=== PATIENT | female | born 1985 | race Caucasian/White ===

== ENCOUNTER 2016-05-01 20:23 | Inpatient (IN) | payer MEDICAID ==
[~2016-05-01] VITALS: Ht 157.5 cm; Wt 92.4 kg
[2016-05-01] MEDS ORDERED: IOHEXOL 350 MG/ML 100ML IJ ONE (20:39)
[2016-05-01 21:03] LABS: Basophils # (auto) 0 uL; Basophils % (auto) 0.3 % (0.0-2.0); DEFINITIVE VIEW TRANSMISSION; Eosinophils # (auto) 0.1 uL; Eosinophils % (auto) 0.4 % (0.0-7.0); Hematocrit 33.1 % (36.0-46.0); Hemoglobin 10.4 g/dL (12.2-16.2); Lymphocytes # (auto) 1.8 uL; Lymphocytes % (auto) 13.8 % (10.0-50.0); Mean Corpuscular Hemoglobin 24.8 pg (28.0-32.0); Mean Corpuscular Hgb Conc. 31.3 g/dL (32.0-36.0); Mean Corpuscular Volume 79.3 fL (80.0-100.0); Mean Platelet Volume 8.8 fL (7.4-10.4); Monocytes # (auto) 0.7 uL; Monocytes % (auto) 5.4 % (0.0-12.0); Neutrophils # (auto) 10.7 uL; Neutrophils % (auto) 80.1 % (37.0-80.0); Platelet Count (auto) 337 10^3/uL (140-450); Red Cell Distribution Width 18.4 % (11.6-16.0); White Blood Cell 13.4 10^3/uL (4.4-10.8)
[2016-05-01 21:25] LABS: Albumin 3.4 g/dL (3.4-5.0); BUN/Creatinine Ratio 17.6; Bilirubin, Total 0.4 mg/dL (0.2-1.0); Calcium 8.7 mg/dL (8.5-10.1); Total Protein 8.2 g/dL (6.4-8.2)
[2016-05-01 21:30] LABS: B-Type Natriuretic Peptide 127.7 pg/mL (0-100); Temperature: 22.7 C (20.0-25.0)
[2016-05-01 21:35] LABS: INR 1.11 (0.9-1.15); Prothrombin Time 11.4 sec (9.37-12.3)
[2016-05-01] MEDS ORDERED: ALTEPLASE (RECOMBINANT) 100 MG in STERILE WATER 100 ML IV ONE ×4 (22:45)
[2016-05-01] MEDS ORDERED: ALTEPLASE (RECOMBINANT) 100 MG ONE (22:52)
[2016-05-02] MEDS ORDERED: HEPARIN DRIP/D5W 100UNITS/ML 250 ML IV SCH ×5 (00:31→21:00)
[2016-05-02 02:55] LABS: Urine RBC None Seen /hpf (0 - 4)
[2016-05-02 03:24] LABS: Urine Bilirubin Negative (Negative); Urine Blood 1+ /uL (Negative); Urine Color Yellow (Yellow); Urine Glucose TRACE mg/dL (Normal); Urine Ketone 1+ (Negative); Urine Mucus FEW (None Seen); Urine Nitrite POSITIVE (Negative); Urine Squamous Epithelial Cell FEW /hpf (<5); Urine Urobilinogen Normal (Negative)
[2016-05-02] MEDS ORDERED: MORPHINE SULF INJ 2 MG/ML SYRINGE 1ML IV PRN (03:30)
[2016-05-02] MEDS ORDERED: ALBUTEROL SULF 2.5 MG/0.5ML(0.5%) NEB SOLN NEB PRN (03:30)
[2016-05-02] MEDS ORDERED: ACETAMINOPHEN 325 MG TAB PO PRN (03:30)
[2016-05-02] MEDS ORDERED: ONDANSETRON HCL 4 MG/2 ML VIAL IV PRN (03:30)
[2016-05-02] MEDS ORDERED: NITROGLYCERIN 0.4 MG SL TAB SL PRN (03:30)
[2016-05-02] MEDS ORDERED: HYDROcodone-ACET 5/325MG TAB PO PRN (03:30)
[2016-05-02] MEDS: SODIUM CHLORIDE 0.9% 1,000 ML IV SCH (04:12)
[2016-05-02 09:47] LABS: INR 1.43 (0.9-1.15); Prothrombin Time 14.7 sec (9.37-12.3)
[2016-05-02] MEDS: FAMOTIDINE 20 MG TAB PO SCH ×2 (10:10→21:43)
[2016-05-02 10:45] VITALS: BP 121/80
[2016-05-02] MEDS ORDERED: DEXTROSE (50%) 50ML SYRG IV PRN (12:45)
[2016-05-02] MEDS: HEPARIN DRIP/D5W 100UNITS/ML 250 ML IV SCH ×2 (14:53→17:36)
[2016-05-02] MEDS ORDERED: cefTRIAXone 1GM/50ML D5W 50 ML IV ONE (16:15)
[2016-05-02 16:33] LABS: Temperature: 23.3 C (20.0-25.0)
[2016-05-02 17:11] LABS: Partial Thromboplastin Time 35.4 sec (22.64-33.71)
[2016-05-02 17:13] LABS: INR 1.3 (0.9-1.15)
[2016-05-02] MEDS: ACCU-CHEK COMFORT CURVE STRIP VI SCH ×2 (17:14→21:44)
[2016-05-02] MEDS: InsuLIN REG 1unit/0.01ml Soln (100units/ml) SC SCH ×2 (17:17→21:48)
[2016-05-02] MEDS ORDERED: HEPARIN SODIUM (PORCINE) 5000 UNITS/ML 1ML VIAL IV ONE (18:00)
[2016-05-02] MEDS ORDERED: VANCOMYCIN PER PHARMACY 0 MG IV SCH (19:15)
[2016-05-02] MEDS: metFORMIN HYDROCHLORIDE 500 MG TAB PO SCH (19:38)
[2016-05-02 20:00] VITALS: BP_SYST 144; BP_SYST 164; BP_DIAS 85; BP_DIAS 93
[2016-05-02] MEDS: VANCOMYCIN 1GM/250ML D5W 250 ML IV SCH (21:41)
[2016-05-02 21:55] LABS: INR 1.28 (0.9-1.15); Prothrombin Time 13.8 sec (9.37-12.3)
[2016-05-02 21:58] LABS: Partial Thromboplastin Time 76.6 sec (22.64-33.71)
[2016-05-02 23:55] VITALS: BP 143/85
[2016-05-03] MEDS: SODIUM CHLORIDE 0.9% 1,000 ML IV SCH ×3 (00:58→22:59)
[2016-05-03 03:14] LABS: Basophils # (auto) 0.1 uL; Basophils % (auto) 0.4 % (0.0-2.0); DEFINITIVE VIEW TRANSMISSION; Eosinophils # (auto) 0.5 uL; Eosinophils % (auto) 4.2 % (0.0-7.0); Hematocrit 30.8 % (36.0-46.0); Hemoglobin 9.8 g/dL (12.2-16.2); Lymphocytes # (auto) 3.4 uL; Lymphocytes % (auto) 28.4 % (10.0-50.0); Mean Corpuscular Hemoglobin 25.2 pg (28.0-32.0); Mean Corpuscular Hgb Conc. 31.9 g/dL (32.0-36.0); Mean Corpuscular Volume 79.2 fL (80.0-100.0); Mean Platelet Volume 8.2 fL (7.4-10.4); Monocytes # (auto) 0.8 uL; Neutrophils # (auto) 7.1 uL; Platelet Count (auto) 287 10^3/uL (140-450); Red Cell Distribution Width 17.6 % (11.6-16.0); White Blood Cell 11.8 10^3/uL (4.4-10.8)
[2016-05-03 03:29] LABS: Partial Thromboplastin Time 54.1 sec (22.64-33.71)
[2016-05-03 03:42] LABS: Albumin 2.8 g/dL (3.4-5.0); Alkaline Phosphatase 71 U/L (45-117); Anion Gap 12 (5-15); Aspartate Aminotransferase 34 U/L (15-37); BUN/Creatinine Ratio 15.9; Bilirubin, Total 0.3 mg/dL (0.2-1.0); Blood Urea Nitrogen 10 mg/dL (7-18); Calcium 8.2 mg/dL (8.5-10.1); Carbon Dioxide 24 mmol/L (21-32); Chloride 105 mmol/L (98-107); Cholesterol 185 mg/dL (<200); GFR African American 141 mL/min; GFR Non-African American 116 mL/min; Glucose 176 mg/dL (74-106); HDL Cholesterol 26 mg/dL (40-59); LDL Cholesterol 132 mg/dL (<100); Potassium 4.1 mmol/L (3.5-5.1); Sodium 141 mmol/L (136-145); Total Protein 7.2 g/dL (6.4-8.2); Triglycerides 226 mg/dL (<150)
[2016-05-03 04:00] VITALS: BP 125/89
[2016-05-03 04:09] LABS: INR 1.19 (0.9-1.15); Prothrombin Time 12.9 sec (9.37-12.3)
[2016-05-03] MEDS: VANCOMYCIN 1GM/250ML D5W 250 ML IV SCH ×3 (05:34→20:50)
[2016-05-03] MEDS: ACCU-CHEK COMFORT CURVE STRIP VI SCH ×4 (06:17→21:21)
[2016-05-03] MEDS: InsuLIN REG 1unit/0.01ml Soln (100units/ml) SC SCH ×4 (06:19→23:04)
[2016-05-03] MEDS: metFORMIN HYDROCHLORIDE 500 MG TAB PO SCH ×2 (06:46→18:04)
[2016-05-03 08:00] VITALS: BP 114/67
[2016-05-03] MEDS: cefTRIAXone 1GM/50ML D5W 50 ML IV SCH (09:02)
[2016-05-03 09:45] LABS: INR 1.13 (0.9-1.15); Prothrombin Time 12.2 sec (9.37-12.3)
[2016-05-03] MEDS: FAMOTIDINE 20 MG TAB PO SCH ×2 (10:23→21:20)
[2016-05-03] MEDS ORDERED: APIXABAN 5 MG TAB PO ONE (11:16)
[2016-05-03 11:58] VITALS: BP 145/88
[2016-05-03 15:57] VITALS: BP 130/78
[2016-05-03 20:00] VITALS: BP 130/74
[2016-05-03] MEDS: APIXABAN 5 MG TAB PO SCH (21:21)
[2016-05-04] VITALS: BP 128/77
[2016-05-04] MEDS: VANCOMYCIN 1GM/250ML D5W 250 ML IV SCH (04:28)
[2016-05-04 04:33] VITALS: BP 135/87
[2016-05-04] MEDS: ACCU-CHEK COMFORT CURVE STRIP VI SCH ×4 (06:16→21:41)
[2016-05-04] MEDS: metFORMIN HYDROCHLORIDE 500 MG TAB PO SCH ×2 (06:32→18:11)
[2016-05-04] MEDS: InsuLIN REG 1unit/0.01ml Soln (100units/ml) SC SCH ×4 (06:41→21:59)
[2016-05-04 07:00] LABS: Basophils # (auto) 0 uL; Basophils % (auto) 0.5 % (0.0-2.0); DEFINITIVE VIEW TRANSMISSION; Eosinophils # (auto) 0.4 uL; Eosinophils % (auto) 4.6 % (0.0-7.0); Hematocrit 29.9 % (36.0-46.0); Hemoglobin 9.6 g/dL (12.2-16.2); Lymphocytes # (auto) 2.1 uL; Lymphocytes % (auto) 23.8 % (10.0-50.0); Mean Corpuscular Hemoglobin 25.1 pg (28.0-32.0); Mean Corpuscular Volume 78.4 fL (80.0-100.0); Mean Platelet Volume 8.6 fL (7.4-10.4); Monocytes # (auto) 0.5 uL; Monocytes % (auto) 6.1 % (0.0-12.0); Neutrophils # (auto) 5.8 uL; Platelet Count (auto) 307 10^3/uL (140-450); Red Cell Distribution Width 17.5 % (11.6-16.0); White Blood Cell 8.9 10^3/uL (4.4-10.8)
[2016-05-04 08:00] VITALS: BP 122/69
[2016-05-04] MEDS: cefTRIAXone 1GM/50ML D5W 50 ML IV SCH (09:03)
[2016-05-04] MEDS: APIXABAN 5 MG TAB PO SCH ×2 (09:20→21:41)
[2016-05-04] MEDS: FAMOTIDINE 20 MG TAB PO SCH ×2 (09:20→21:41)
[2016-05-04] MEDS: FERROUS SULFATE 325 MG TAB PO SCH (11:30)
[2016-05-04 17:00] VITALS: BP 126/71
[2016-05-04 22:00] VITALS: BP 125/70
[2016-05-05 05:15] LABS: Hematocrit 31.5 % (36.0-46.0); Hemoglobin 9.9 g/dL (12.2-16.2)
[2016-05-05 05:41] VITALS: BP 119/81
[2016-05-05] MEDS: ACCU-CHEK COMFORT CURVE STRIP VI SCH ×2 (06:38→11:59)
[2016-05-05] MEDS: metFORMIN HYDROCHLORIDE 500 MG TAB PO SCH (06:38)
[2016-05-05] MEDS: InsuLIN REG 1unit/0.01ml Soln (100units/ml) SC SCH ×2 (06:45→11:59)
[2016-05-05] MEDS: FERROUS SULFATE 325 MG TAB PO SCH (08:54)
[2016-05-05] MEDS: APIXABAN 5 MG TAB PO SCH (08:54)
[2016-05-05] MEDS: cefTRIAXone 1GM/50ML D5W 50 ML IV SCH (08:54)
[2016-05-05] MEDS: FAMOTIDINE 20 MG TAB PO SCH (08:54)
[2016-05-05 09:00] VITALS: BP 128/79
[2016-05-05] MEDS ORDERED: METF500T PO (13:50)
[2016-05-05] MEDS ORDERED: FER325T PO (13:50)
[2016-05-05 18:07] VITALS: BP 135/83
[2016-05-10] MEDS ORDERED: APIXABAN 5 MG TAB PO SCH (22:00)
== END 2016-05-05 18:00 | disposition home or self-care (01) | DRG 720 ==
LOC: EDBD 20:23 → ER 20:29 → EDBD 20:29 → TELE 20:30 → DOU IN ICU 05-02 18:32 → TELE-WESTW 05-04 12:47
PROVIDERS: ADMIT Nurse Practitioner; ATTEND Internal Medicine
DX: A40.8 Other streptococcal sepsis (principal); J96.00 Acute respiratory failure, unspecified whether with hypoxia or hypercapnia; I26.99 Other pulmonary embolism without acute cor pulmonale; E11.65 Type 2 diabetes mellitus with hyperglycemia; E66.01 Morbid (severe) obesity due to excess calories; K76.0 Fatty (change of) liver, not elsewhere classified; J45.909 Unspecified asthma, uncomplicated; I51.7 Cardiomegaly; D64.9 Anemia, unspecified; G47.33 Obstructive sleep apnea (adult) (pediatric); Z98.890 Other specified postprocedural states; Z68.37 Body mass index [BMI] 37.0-37.9, adult; Z86.711 Personal history of pulmonary embolism
CPT/HCPCS: 36415; 36600; 70450; 71010; 71020; 71275; 80053; 80061; 80202; 81001; 81025; 82270; 82607; 82746; 82805; 82962; 83036; 83540; 83550; 83735; 83880; 84443; 84484; 85014; 85018; 85025; 85610; 85730; 87040; 87076; 87077; 87081; 87086; 87186; 93005; 93306; 93970; 96374; 96375; 99291; J0696; J1815